=== PATIENT | female | born 1960 | race Caucasian/White ===

== ENCOUNTER 2016-11-19 06:58 | Emergency (ER) | payer OTHER ==
[2016-11-19 06:58] VITALS: BMI 27.4
[2016-11-19 07:06] VITALS: O2SAT 100
[2016-11-19] MEDS ORDERED: Lidocaine 5% Patch TD STA (07:15)
[2016-11-19] MEDS ORDERED: Lidocaine 5% Patch TD ONE (07:19)
--- NOTE | 2016-11-19 07:42 | C.PDOC ---
History Of Present Illness 56 year old female presents to the ED with complaints of lower back pain radiating down left leg. Pt has had back pain intermittently for 4 years with occasional flare-ups. No medications taken this morning. Denies fall or injury. Denies weakness, numbness, incontinence or any other complaints. Time Seen by Provider: 11/19/16 07:10 Chief Complaint (Nursing): Back Pain History Per: Patient History/Exam Limitations: no limitations Onset/Duration Of Symptoms: Days, Intermittent Episodes Current Symptoms Are (Timing): Still Present Quality Of Discomfort: "Pain" Severity: Moderate Previous Symptoms: Back Pain Associated Symptoms: None Recent travel outside of the [place]: No Past Medical History Reviewed: Historical Data, Nursing Documentation, Vital Signs Vital Signs: Last Vital Signs Temp 98.0 F 11/19/16 09:10 Pulse 78 11/19/16 09:10 Resp 16 11/19/16 09:10 BP 98/65 L 11/19/16 09:10 Pulse Ox 100 11/19/16 09:28 - Medical History PMH: Asthma, Hypercholesterolemia - [facility] Procedures APPLICATION OF SPLINT (09/14/13) Family History: States: Unknown Family Hx, Hypertension - Social History Hx Tobacco Use: No Hx Alcohol Use: No Hx Substance Use: No - Immunization History Hx Tetanus Toxoid Vaccination: No Hx Influenza Vaccination: No Hx Pneumococcal Vaccination: No Review Of Systems Except As Marked, All Systems Reviewed And Found Negative. Constitutional: Negative for: Fever Genitourinary: Negative for: Incontinence Musculoskeletal: Positive for: Back Pain. Negative for: Neck Pain Neurological: Negative for: Weakness, Numbness Physical Exam - Physical Exam Appears: Non-toxic, No Acute Distress Skin: Warm, Dry, No Rash Head: Atraumatic, Normacephalic Eye(s): bilateral: Normal Inspection, EOMI Nose: Normal Oral Mucosa: Moist Neck: Normal, Normal ROM, Supple Cardiovascular: Rhythm Regular, No Murmur Respiratory: Normal Breath Sounds, No Rales, No Rhonchi, No Wheezing Back: No Vertebral Tenderness, Paraspinal Tenderness (lumbar) Extremity: Normal ROM Extremity: Bilateral: Atraumatic, Normal Color And Temperature, Normal ROM Neurological/Psych: Oriented x3, Normal Speech, Normal Motor, Normal Sensation ED Course And Treatment O2 Sat by Pulse Oximetry: 100 (room air) Pulse Ox Interpretation: Normal Medical Decision Making Medical Decision Makin y.o female with low back pain, no recent trauma. Exam shows muscular tenderness. Patient treated with Toradol, Valium and Lidoderm patch. Patient reported improvement of symptoms. Upon reevaluation she was ambulatory with minimal discomfort. UA was negative. Advise patient to take analgesics and to follow up with primary physician. Disposition Counseled Patient/Family Regarding: Diagnosis, Need For Followup, Rx Given - Disposition Referrals: Evens Petit Jr., MD [Medical Doctor] - Disposition: HOME/ ROUTINE Disposition Time: 09:05 Condition: STABLE Additional Instructions: Ashly medicamentos fueron enviados a la farmacia Por favor, tome los medicamentos necesarios para el dolor Maurice un seguimiento con gaming mdico de cabecera para ángel evaluacin posterior Prescriptions: Cyclobenzaprine [Cyclobenzaprine HCl] 10 mg PO TID #21 tab Naproxen [Naprosyn] 1 tab PO BID PRN #25 tab PRN Reason: Pain Instructions: Sciatica (ED) Forms: Work Excuse Print Language: LAO - POA Present On Arrival: None - Clinical Impression Clinical Impression: Sciatica, Low back pain - 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 - Scribe Statement The provider has reviewed the documentation as recorded by the Rodolfo Vieyra All medical record entries made by the Rodolfo were at my direction and personally dictated by me. I have reviewed the chart and agree that the record accurately reflects my personal performance of the history, physical exam, medical decision making, and the department course for this patient. I have also personally directed, reviewed, and agree with the discharge instructions and disposition.
[2016-11-19 08:47] LABS: RBC URINE < 1 /hpf (0-3); URINE BILIRUBIN NEGATIVE (NEGATIVE); URINE BLOOD NEGATIVE (NEGATIVE); URINE COLOR Yellow (YELLOW); URINE GLUCOSE (UA) NORMAL (Normal); URINE KETONE NEGATIVE (NEGATIVE); URINE LEUKOCYTE ESTERASE 1+ Leu/uL (Negative); URINE PROTEIN NEGATIVE (NEGATIVE); WBC URINE 2 /hpf (0-5)
[2016-11-19 10:08] VITALS: BP 98/65; PULSE 78; RESP 16; TEMP 98
== END 2016-11-19 09:15 | disposition home or self-care (01) ==
LOC: C.ER 06:58
DX: M54.42 Lumbago with sciatica, left side (principal)
CPT/HCPCS: 81001; 96372; 99284; J1885

== ENCOUNTER 2016-12-16 14:59 | Emergency (ER) | payer OTHER ==
[2016-12-16 15:00] VITALS: BMI 27.4
--- NOTE | 2016-12-16 15:46 | C.PDOC ---
History Of Present Illness 56-year-old female, PMhx includes Asthma and Hypercholesterolemia, presents to the emergency department with complaints of chest wall pain that started four days ago. Pain is sharp, stabbing, left-sided and intermittent. Patient notes that pain is associated with mild nausea; it is worse w/ deep breaths and coughing. Notes a chronic cough due to asthma. No sputum, fevers or chills. Pain worsened today, resulting in her coming to the ED for evaluation. Time Seen by Provider: 12/16/16 15:04 Chief Complaint (Nursing): Chest Pain History Per: Patient History/Exam Limitations: no limitations Onset/Duration Of Symptoms: Days Current Symptoms Are (Timing): Still Present Severity: Moderate Past Medical History Reviewed: Historical Data, Nursing Documentation, Vital Signs Vital Signs: Last Vital Signs Temp 97.8 F 12/16/16 15:23 Pulse 73 12/16/16 15:23 Resp 18 12/16/16 15:49 BP 131/79 12/16/16 15:23 Pulse Ox 99 12/16/16 15:50 - Medical History PMH: Asthma, Hypercholesterolemia - [facility] Procedures APPLICATION OF SPLINT (09/14/13) Family History: States: Hypertension - Social History Hx Tobacco Use: No Hx Alcohol Use: No Hx Substance Use: No - Immunization History Hx Tetanus Toxoid Vaccination: No Hx Influenza Vaccination: No Hx Pneumococcal Vaccination: No Review Of Systems Except As Marked, All Systems Reviewed And Found Negative. Cardiovascular: Positive for: Chest Pain Respiratory: Positive for: Shortness of Breath, SOB with Excertion Gastrointestinal: Negative for: Nausea, Vomiting Musculoskeletal: Negative for: Back Pain Physical Exam - Physical Exam Appears: Non-toxic, No Acute Distress Skin: Warm, Dry, No Rash Head: Atraumatic, Normacephalic Eye(s): bilateral: Normal Inspection, PERRL, EOMI Nose: Normal Oral Mucosa: Moist Lips: Normal Appearing Neck: Normal ROM Chest: Tenderness (left chest wall) Cardiovascular: Rhythm Regular, No Murmur Respiratory: Normal Breath Sounds, No Accessory Muscle Use Back: Normal Inspection Extremity: Normal ROM ED Course And Treatment - Laboratory Results Result Diagrams: 12/16/16 16:32 12/16/16 16:32 Lab Interpretation: Normal ECG: Interpreted By Hi ECG Rhythm: Sinus Rhythm ECG Interpretation: Normal O2 Sat by Pulse Oximetry: 99 Pulse Ox Interpretation: Normal - Radiology CXR: Viewed By Me, Read By Radiologist CXR Interpretation: Yes: No Acute Disease, Other (elevated right hemidiaphragm) Reevaluation Time: 17:31 Reassessment Condition: Improved (Much more comfortable after Toradol IV) Disposition Counseled Patient/Family Regarding: Studies Performed, Diagnosis, Need For Followup - Disposition Referrals: Evens Petit Jr., MD [Family Provider] - Disposition: HOME/ ROUTINE Disposition Time: 17:34 Condition: IMPROVED Additional Instructions: Take Ibuprophen 3 tablets with food every 6 hours for pain if needed. Instructions: Costochondritis (ED) Print Language: MALAGASY - Clinical Impression Clinical Impression: Costochondritis - Scribe Statement The provider has reviewed the documentation as recorded by the Rodolfo Ross All medical record entries made by the Bhavanaibjose r were at my direction and personally dictated by me. I have reviewed the chart and agree that the record accurately reflects my personal performance of the history, physical exam, medical decision making, and the department course for this patient. I have also personally directed, reviewed, and agree with the discharge instructions and disposition.
[2016-12-16 15:53] VITALS: RESP 18
[2016-12-16 16:36] LABS: BASO # 0.1 K/uL (0.0-0.2); BASO % 0.9 % (0.0-2.0); EOS # 0.1 K/uL (0.0-0.7); EOS % 0.7 % (0.0-4.0); LYMPH # 2.5 K/uL (1.0-4.3); LYMPH % 30.2 % (20.0-40.0); MEAN CELL VOLUME 91.2 fL (81.0-99.0); MEAN CORPUSCULAR HEMOGLOBIN 29.9 pg (27.0-31.0); MEAN CORPUSCULAR HGB CONC 32.7 g/dL (33.0-37.0); MEAN PLATELET VOLUME 11.3 fL (7.2-11.7); MONO # 0.4 K/uL (0.0-0.8); MONO % 4.6 % (0.0-10.0); RED CELL DISTRIBUTION WIDTH 13.5 % (11.5-14.5); WHITE BLOOD COUNT 8.4 K/uL (4.8-10.8)
[2016-12-16 16:44] LABS: CHLORIDE 102 mmol/L (98-107); SODIUM 141 mmol/L (132-148)
[2016-12-16 16:45] LABS: POTASSIUM 3.5 mmol/L (3.6-5.2)
[2016-12-16 16:47] LABS: ALB/GLOB RATIO 1.5 (1.0-2.1); ALKALINE PHOSPHATASE 62 U/L (38-126); ALT/SGPT 24 U/L (9-52); AST/SGOT 20 U/L (14-36); BILIRUBIN,TOTAL 0.5 mg/dL (0.2-1.3); BLOOD UREA NITROGEN 13 mg/dL (7-17); CARBON DIOXIDE 28 mmol/L (22-30); GFR AFRICAN-AMERICAN > 60; GLUCOSE,RANDOM 94 mg/dL (65-105); TOTAL PROTEIN 7.2 g/dL (6.3-8.3)
--- NOTE | 2016-12-16 16:47 | RAD ---
PROCEDURE: CHEST RADIOGRAPH, 1 VIEW HISTORY: chest pain COMPARISON: Comparison chest 09/05/2016 FINDINGS: LUNGS: No focal consolidation. Elevation right hemidiaphragm could be due to eventration. PLEURA: No pneumothorax or pleural fluid seen. CARDIOVASCULAR: Normal. OSSEOUS STRUCTURES: Mild the multilevel degenerative spondylosis of the thoracic spine. Mild degenerative changes both acromioclavicular joints. VISUALIZED UPPER ABDOMEN: Normal. OTHER FINDINGS: None. IMPRESSION: No acute cardiopulmonary disease. Elevation right hemidiaphragm could be due to eventration.
[2016-12-16 16:48] LABS: CALCIUM 8.9 mg/dl (8.6-10.4)
[2016-12-16 17:42] VITALS: BP 131/74; PULSE 77; TEMP 98; O2SAT 96
--- NOTE | 2016-12-18 12:10 | CARD ---
APPROVED REPORT EKG Measurement Heart [id number] <Conclusion> Normal sinus rhythm Normal ECG
== END 2016-12-16 17:41 | disposition home or self-care (01) ==
LOC: C.ER 14:59
DX: M94.0 Chondrocostal junction syndrome [Tietze] (principal); E78.00 Pure hypercholesterolemia, unspecified
CPT/HCPCS: 71010; 80053; 84484; 85025; 93005; 96374; 99285; J1885

== ENCOUNTER 2017-03-10 09:17 | Emergency (ER) | payer OTHER ==
[2017-03-10 09:17] VITALS: BMI 27.4
[2017-03-10] MEDS ORDERED: Sodium Chloride 0.9% 1,000 ML IV ONE (09:39)
[2017-03-10 09:46] LABS: RBC URINE 1 /hpf (0-3); URINE BACTERIA RARE (<OCC); URINE BILIRUBIN NEGATIVE (NEGATIVE); URINE BLOOD NEGATIVE (NEGATIVE); URINE COLOR Yellow (YELLOW); URINE GLUCOSE (UA) NORMAL (Normal); URINE KETONE NEGATIVE (NEGATIVE); URINE LEUKOCYTE ESTERASE TRACE Leu/uL (Negative); URINE PROTEIN NEGATIVE (NEGATIVE); URINE UROBILINOGEN NORMAL mg/dL (0.2-1.0); WBC URINE 2 /hpf (0-5)
--- NOTE | 2017-03-10 10:02 | C.PDOC ---
History Of Present Illness 56 y/o female presents to ED c/o lower abdominal pain, described as cramping, for 4 days. Patient states she had a lot of different foods this past weekend, including pork and fried food, and symptoms have been present since then. Patient also reports 1 episode of bright red blood with bowel movement since this morning. She admits to prior similar symptoms with bowel movement, had a hemorrhoid. Patient denies current hemorrhoid. She also denies fever, chills, nausea, vomiting, dysuria/hematuria, fever, constipation. Time Seen by Provider: 03/10/17 09:21 Chief Complaint (Nursing): GI Problem History Per: Patient History/Exam Limitations: no limitations Onset/Duration Of Symptoms: Days Current Symptoms Are (Timing): Still Present Severity: Mild Past Medical History Reviewed: Historical Data, Nursing Documentation, Vital Signs Vital Signs: Last Vital Signs Temp 97.8 F 03/10/17 11:19 Pulse 76 03/10/17 11:19 Resp 18 03/10/17 11:19 BP 112/73 03/10/17 11:19 Pulse Ox 99 03/10/17 12:19 - Medical History PMH: Asthma, Depression, Hypercholesterolemia - [facility] Procedures APPLICATION OF SPLINT (09/14/13) Family History: States: Hypertension - Social History Hx Tobacco Use: No Hx Alcohol Use: Yes Hx Substance Use: No - Immunization History Hx Tetanus Toxoid Vaccination: No Hx Influenza Vaccination: No Hx Pneumococcal Vaccination: No Review Of Systems Except As Marked, All Systems Reviewed And Found Negative. Constitutional: Negative for: Fever, Chills Cardiovascular: Negative for: Chest Pain, Palpitations Respiratory: Negative for: Cough, Wheezing Gastrointestinal: Positive for: Abdominal Pain, Hematochezia. Negative for: Nausea, Vomiting, Diarrhea Genitourinary: Negative for: Dysuria, Hematuria Skin: Negative for: Rash Neurological: Negative for: Headache, Dizziness Physical Exam - Physical Exam Appears: Well, Non-toxic, No Acute Distress Skin: Normal Color, Warm, Dry, No Pale Oral Mucosa: Moist Neck: Supple Cardiovascular: Rhythm Regular Respiratory: Normal Breath Sounds, No Rales, No Rhonchi, No Wheezing Gastrointestinal/Abdominal: Bowel Sounds, Soft, Tenderness ( lower abdomen mildly TTP), No Guarding, No Rebound Rectal: Rectal Tone (Normal ), Heme Positive, Hemorrhoids (@ 6 o'clock, nontender, nonthrombosed, No gross blood. ), No Mass, No Tenderness, Other (No fissures ) Back: Normal Inspection, No CVA Tenderness Neurological/Psych: Oriented x3 ED Course And Treatment - Laboratory Results Result Diagrams: 03/10/17 09:46 03/10/17 09:46 O2 Sat by Pulse Oximetry: 99 (RA) Pulse Ox Interpretation: Normal Progress Note: Blood work ordered and reviewed. Patient given IV NS bolus. Reevaluation Time: 11:10 Reassessment Condition: Improved (On reassessment, patient is resting comfortably and states she feels better. On exam, abdomen is soft and nontender. Blood work and UA, Upreg (-). SFOB (+) and likely due to hemorrhoid. Patient given Rxs for colace, anusol and protonix, and was instructed to follow up with GI within 1 week. She understands she should return to Ed if symptoms worsen.) Disposition Counseled Patient/Family Regarding: Studies Performed, Diagnosis, Need For Followup, Rx Given - Disposition Referrals: Jaime Banks [Staff Provider] - [facility] [Outside] [facility] [Outside] Disposition: HOME/ ROUTINE Disposition Time: 11:10 Condition: STABLE Additional Instructions: USTED NECESITA SEGUIR CON GASTRONETEROLOGIST DENTRO DE 1 SEMANA USTED NECESITA CHERRIE COLONOSCOPIA! DEVUELVA A LA CHRISTA DE EMERGENCIA SI LOS SNTOMAS EMPEORARAN Prescriptions: Docusate [Colace] 100 mg PO DAILY #30 cap Hydrocortisone 2.5% (Rectal) [Anusol-HC] 30 applic AL BID #1 tube Pantoprazole [Protonix EC Tab] 20 mg PO DAILY #30 ect Instructions: Hemorrhoids (ED), Rectal Bleeding (ED) Forms: [employer] (Portuguese) Print Language: MOZAMBICAN - POA Present On Arrival: None - Clinical Impression Clinical Impression: Hemorrhoid, Rectal bleeding - Scribe Statement The provider has reviewed the documentation as recorded by the Rodolfo Ying Provider Attestation: All medical record entries made by the Scribjose r were at my direction and personally dictated by me. I have reviewed the chart and agree that the record accurately reflects my personal performance of the history, physical exam, medical decision making, and the department course for this patient. I have also personally directed, reviewed, and agree with the discharge instructions and disposition.
[2017-03-10 10:06] LABS: BASO % 0.4 % (0.0-2.0); EOS # 0.1 K/uL (0.0-0.7); EOS % 0.8 % (0.0-4.0); HEMATOCRIT 43.4 % (34.0-47.0); LYMPH # 1.4 K/uL (1.0-4.3); LYMPH % 14.6 % (20.0-40.0); MEAN CELL VOLUME 91.8 fL (81.0-99.0); MEAN CORPUSCULAR HEMOGLOBIN 30.1 pg (27.0-31.0); MEAN CORPUSCULAR HGB CONC 32.8 g/dL (33.0-37.0); MEAN PLATELET VOLUME 11.4 fL (7.2-11.7); MONO # 0.5 K/uL (0.0-0.8); MONO % 4.8 % (0.0-10.0); NRBC % 0.1 % (0.0-2.0); RED CELL DISTRIBUTION WIDTH 13.9 % (11.5-14.5); WHITE BLOOD COUNT 9.5 K/uL (4.8-10.8)
[2017-03-10 10:07] LABS: CHLORIDE 102 mmol/L (98-107); SODIUM 142 mmol/L (132-148)
[2017-03-10 10:08] LABS: POTASSIUM 3.7 mmol/L (3.6-5.2)
[2017-03-10 10:10] LABS: ALB/GLOB RATIO 1.4 (1.0-2.1); ALKALINE PHOSPHATASE 69 U/L (38-126); ALT/SGPT 35 U/L (9-52); AST/SGOT 22 U/L (14-36); BILIRUBIN,TOTAL 0.6 mg/dL (0.2-1.3); BLOOD UREA NITROGEN 14 mg/dL (7-17); CALCIUM 9.5 mg/dl (8.6-10.4); CARBON DIOXIDE 28 mmol/L (22-30); GFR AFRICAN-AMERICAN > 60; GLUCOSE,RANDOM 99 mg/dL (65-105); TOTAL PROTEIN 7.2 g/dL (6.3-8.3)
[2017-03-10 11:20] VITALS: BP 112/73; PULSE 76; RESP 18; TEMP 97.8
[2017-03-10 12:20] VITALS: O2SAT 99
== END 2017-03-10 11:20 | disposition home or self-care (01) ==
LOC: C.ER 09:17
DX: K64.9 Unspecified hemorrhoids (principal); K62.5 Hemorrhage of anus and rectum
CPT/HCPCS: 80053; 81001; 83690; 85025; 86850; 86900; 96360; 99285; G0328; J7040

== ENCOUNTER 2017-03-30 08:08 | Day surgery (SDC) | payer OTHER ==
[2017-03-30] MEDS ORDERED: Lidocaine Hydrochloride 5 ML INJ ONE (09:14)
[2017-03-30] MEDS ORDERED: Propofol 10 mg/ml Inj (20 ML) ONE ×2 (09:14→09:24)
--- NOTE | 2017-03-30 09:14 | CP.SDSHP ---
Same Day Surgery H & P - History Proposed Procedure: COLONSCOPY Pre-Op Diagnosis: SEE NOTES - Previous Medical/Surgical History Pulmonary: Asthma Endocrine/Metabolic: Other Misc: Other Pain: 4.Moderate Pain - Allergies Allergies: Allergies No Known Allergies Allergy (Verified 05/15/16 23:55) - Physical Exam General Appearance: N Vital Signs: Vital Signs 03/30/17 08:48 Temperature 97 F L Pulse Rate 77 Respiratory 20 Rate Blood Pressure 96/67 L O2 Sat by Pulse 97 Oximetry Mental Status: Alert & Oriented x3 Neuro: WNL Heart: WNL Lungs: Other GI: WNL - {Optional Preform as Required} Breast: WNL Abdomen: Other Rectal: Other Integument: WNL : WNL Ortho: WNL ENT: WNL - Impression Pt. Evaluated Today:Candidate for Anesthesia & Procedure: Yes - Date & Time Time: 09:13 Short Stay Discharge - Short Stay Discharge Admitting Diagnosis/Reason for Visit: HEMORRHAGE OF ANUS AND RECTUM Disposition: HOME/ ROUTINE
[2017-03-30] MEDS ORDERED: Belladonna-Phenobarbital PO ONE (09:50)
[2017-03-30 09:54] VITALS: TEMP 97.3; O2SAT 100
[2017-03-30 10:29] VITALS: BP 109/66; PULSE 61; RESP 16
== END 2017-03-30 11:00 | disposition home or self-care (01) ==
LOC: C.ENDO 08:08
PROVIDERS: ATTEND Specialist
DX: K52.9 Noninfective gastroenteritis and colitis, unspecified (principal); K64.8 Other hemorrhoids; K57.90 Diverticulosis of intestine, part unspecified, without perforation or abscess without bleeding
CPT/HCPCS: 45380; 88305; J2704

== ENCOUNTER 2017-05-26 05:13 | Emergency (ER) | payer OTHER ==
[2017-05-26 05:14] VITALS: BMI 27.4
[2017-05-26 05:28] VITALS: RESP 18
[2017-05-26] MEDS ORDERED: Albuterol-Ipratrop 3 mg / 0.5 (3 ml) UD INH STA ×2 (05:42→06:07)
[2017-05-26] MEDS ORDERED: Albuterol-Ipratrop 3 mg / 0.5 (3 ml) UD ONE ×2 (05:42→06:10)
--- NOTE | 2017-05-26 06:36 | C.PDOC ---
History Of Present Illness 56 year old female with Hx of asthma presents to the ED c/o cough associated with a runny nose and wheezing that occurred this morning when she woke up. She states taking her pump but with moderate relief. She denies fever, vomit, CP, SOB. Time Seen by Provider: 05/26/17 05:30 Chief Complaint (Nursing): Cough, Cold, Congestion History Per: Patient History/Exam Limitations: no limitations Onset/Duration Of Symptoms: Hrs Current Symptoms Are (Timing): Still Present Location Of Pain: None Sick Contacts (Context): None Associated Symptoms: Cough, Sinus Drainage. denies: Vomiting, Diarrhea Recent travel outside of the [place]: No Additional History Per: Patient Past Medical History Reviewed: Historical Data, Nursing Documentation, Vital Signs Vital Signs: Last Vital Signs Temp 97.9 F 05/26/17 05:26 Pulse 83 05/26/17 05:26 Resp 18 05/26/17 05:26 BP 122/84 05/26/17 05:26 Pulse Ox 97 05/26/17 06:40 - Medical History PMH: Asthma, Depression, Hypercholesterolemia Denies: Chronic Kidney Disease Surgical History: No Surg Hx - [facility] Procedures APPLICATION OF SPLINT (09/14/13) Family History: States: Unknown Family Hx, Hypertension - Social History Hx Tobacco Use: No Hx Alcohol Use: Yes Hx Substance Use: No - Immunization History Hx Tetanus Toxoid Vaccination: No Hx Influenza Vaccination: Yes Hx Pneumococcal Vaccination: No Review Of Systems Constitutional: Negative for: Fever, Chills ENT: Positive for: Nose Discharge. Negative for: Throat Pain Cardiovascular: Negative for: Chest Pain, Palpitations Respiratory: Positive for: Cough. Negative for: Shortness of Breath Gastrointestinal: Negative for: Nausea, Vomiting, Abdominal Pain Neurological: Negative for: Weakness, Numbness, Headache Physical Exam - Physical Exam Appears: Non-toxic, No Acute Distress Skin: Normal Color, Warm, Dry, No Rash Head: Atraumatic, Normacephalic Eye(s): bilateral: Normal Inspection Oral Mucosa: Moist Throat: Normal, No Erythema, No Exudate Neck: Normal ROM, Supple Chest: Symmetrical Cardiovascular: Rhythm Regular, No Murmur Respiratory: No Accessory Muscle Use, Wheezing (Mild expiratory) Gastrointestinal/Abdominal: Soft, No Tenderness Extremity: Normal ROM, No Pedal Edema, No Calf Tenderness, No Swelling Neurological/Psych: Oriented x3, Normal Speech, Normal Cognition Gait: Steady ED Course And Treatment O2 Sat by Pulse Oximetry: 97 (On RA) Pulse Ox Interpretation: Normal Medical Decision Making Medical Decision Making: Plan: * Albuterol 3 ml INH given * Prednisone 60 mg mg PO given * Peak flow test ordered On reevaluation patient is resting comfortably in no apparent distress. On re-exam, the patient rpeorts improvement of symptoms. Lungs are CTA, heart is RRR, ambulatory in the ED with steady. Abdomen is soft, non-tender and the patient is tolerating PO well. Follow up with the medical doctor within 1-2 days. Return if worsened. Disposition - Disposition Referrals: [facility] [Outside] Disposition: HOME/ ROUTINE Disposition Time: 06:46 Condition: GOOD Additional Instructions: Follow up with the medical doctor within 1-2 days. Return if worsened. Prescriptions: Albuterol 0.5% [Albuterol 0.5% Inhal Rosita (2.5 mg/0.5 ml) UD] 0.5 ml IH Q6 PRN # 20 neb PRN Reason: Wheezing Nebulizer Accessories [Reusable Nebulizer Kit] 1 each MC Q4 #1 kit predniSONE [Prednisone] 20 mg PO BID #10 tab Instructions: Upper Respiratory Infection (ED), Asthma (ED) Forms: [facility] (Sammarinese), Work Excuse Print Language: PERSIAN - Clinical Impression Clinical Impression: Exacerbation of asthma, Upper respiratory infection - PA / [employer] / Resident Statement MD/DO has reviewed & agrees with the documentation as recorded. - Scribe Statement The provider has reviewed the documentation as recorded by the Scribe Jacques James All medical record entries made by the Scribjose r were at my direction and personally dictated by me. I have reviewed the chart and agree that the record accurately reflects my personal performance of the history, physical exam, medical decision making, and the department course for this patient. I have also personally directed, reviewed, and agree with the discharge instructions and disposition.
[2017-05-26 06:59] VITALS: BP 125/82; PULSE 88; TEMP 99; O2SAT 100
== END 2017-05-26 06:59 | disposition home or self-care (01) ==
LOC: SUPCPDRO 05:13 → C.ER 05:13
DX: J45.901 Unspecified asthma with (acute) exacerbation (principal); J06.9 Acute upper respiratory infection, unspecified

== ENCOUNTER 2017-08-04 18:19 | Emergency (ER) | payer OTHER ==
[2017-08-04 18:19] VITALS: BMI 27.4
[2017-08-04] MEDS ORDERED: Albuterol-Ipratrop 3 mg / 0.5 (3 ml) UD ONE (18:26)
[2017-08-04 18:41] VITALS: BP 122/77; PULSE 101; TEMP 98.4; O2SAT 99
[2017-08-04 19:11] VITALS: RESP 22
--- NOTE | 2017-08-04 20:02 | C.PDOC ---
History Of Present Illness 56 year old female presents to the ED c/o cough, chest congestion. Patient reports she used her nebulizer treatment at home with some relief, but states she feel like "phlegm stuck in my throat". Patient denies any fever, chills, nausea, vomit, diarrhea, abdominal pain. Time Seen by Provider: 08/04/17 19:29 Chief Complaint (Nursing): Shortness Of Breath History Per: Patient History/Exam Limitations: no limitations Onset/Duration Of Symptoms: Days Current Symptoms Are (Timing): Still Present Quality: "Pain" Current Respiratory Medications: See Home Med List Associated Symptoms: Other (chest congestion) Recent travel outside of the [place]: No Additional History Per: Patient Past Medical History Reviewed: Historical Data, Nursing Documentation, Vital Signs Vital Signs: Last Vital Signs Temp 98.4 F 08/04/17 18:38 Pulse 101 H 08/04/17 18:38 Resp 22 08/04/17 19:09 BP 122/77 08/04/17 18:38 Pulse Ox 99 08/04/17 20:02 - Medical History PMH: Arthritis, Asthma, Depression, Hypercholesterolemia Denies: Chronic Kidney Disease Surgical History: No Surg Hx - [facility] Procedures APPLICATION OF SPLINT (09/14/13) Family History: States: Unknown Family Hx, Hypertension - Social History Hx Tobacco Use: No Hx Alcohol Use: No Hx Substance Use: No - Immunization History Hx Tetanus Toxoid Vaccination: No Hx Influenza Vaccination: Yes Hx Pneumococcal Vaccination: No Review Of Systems Constitutional: Negative for: Fever, Chills Cardiovascular: Positive for: Chest Pain Respiratory: Positive for: Cough. Negative for: Shortness of Breath Gastrointestinal: Negative for: Nausea, Vomiting, Abdominal Pain Genitourinary: Negative for: Dysuria, Frequency, Hematuria Musculoskeletal: Negative for: Back Pain Skin: Negative for: Rash Neurological: Negative for: Weakness, Numbness Physical Exam - Physical Exam Appears: Non-toxic, No Acute Distress Skin: Normal Color, Warm, Dry Head: Atraumatic, Normacephalic Eye(s): bilateral: Normal Inspection Ear(s): Bilateral: Normal Nose: No Discharge, No Deformity Oral Mucosa: Moist Throat: Normal, No Erythema, No Exudate Neck: Normal ROM, Supple Lymphatic: Deferred Chest: Symmetrical Cardiovascular: Rhythm Regular, No Murmur Respiratory: Normal Breath Sounds, No Rales, No Rhonchi, No Wheezing Gastrointestinal/Abdominal: Soft, No Tenderness, No Guarding, No Rebound Extremity: Normal ROM, No Pedal Edema, No Calf Tenderness, No Deformity, No Swelling Neurological/Psych: Oriented x3, Normal Speech, Normal Cognition Gait: Steady ED Course And Treatment O2 Sat by Pulse Oximetry: 99 (On RA) Pulse Ox Interpretation: Normal Progress Note: Plan: -EKG. -Tessalon perles 100 mg PO. -Tylenol 975 mg PO. - Prednisone 60 mg PO. Patient received a nebulizer tretament prior to my examnination. Patient is resting comfortably, and is in no acute distress. Patient was instructed to follow up with PMD in 1-2 days for further evaluation. Disposition Counseled Patient/Family Regarding: Diagnosis, Need For Followup, Rx Given - Disposition Referrals: Evens Mccarthy [Staff Provider] - Disposition: HOME/ ROUTINE Disposition Time: 20:01 Condition: STABLE Additional Instructions: Please follow up with PMD Take medications as directed Return to ER if worse Prescriptions: Benzonatate [Tessalon Perles] 100 mg PO TID #20 sgl Cetirizine HCl [Zyrtec] 10 mg PO DAILY #20 capsule predniSONE [Prednisone] 40 mg PO DAILY #8 tab Instructions: Upper Respiratory Infection (ED) Forms: [employer] (Telugu) Print Language: ROMANSH - Clinical Impression Clinical Impression: Upper respiratory infection, Exacerbation of asthma - 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 - Scribe Statement The provider has reviewed the documentation as recorded by the Scribe Jacques James All medical record entries made by the Bhavanaibjose r were at my direction and personally dictated by me. I have reviewed the chart and agree that the record accurately reflects my personal performance of the history, physical exam, medical decision making, and the department course for this patient. I have also personally directed, reviewed, and agree with the discharge instructions and disposition.
--- NOTE | 2017-08-05 12:38 | CARD ---
APPROVED REPORT EKG Measurement Heart [id number] <Conclusion> Normal sinus rhythm Normal ECG
== END 2017-08-04 20:29 | disposition home or self-care (01) ==
LOC: C.ER 18:19
DX: J06.9 Acute upper respiratory infection, unspecified (principal); J45.901 Unspecified asthma with (acute) exacerbation

== ENCOUNTER 2018-03-15 15:03 | Emergency (ER) | payer SELFPAY ==
[2018-03-15 15:04] VITALS: BMI 27.4
[2018-03-15 15:22] VITALS: BP 132/81; PULSE 69; RESP 20; TEMP 98.3; O2SAT 98
--- NOTE | 2018-03-15 15:56 | C.PDOC ---
History Of Present Illness 57 y/o female presents to the ER for evaluation of left ankle pain and swelling which gradually developed after she sustained a twisting injury yesterday. Pt states that the pain is localized to the left lateral ankle. Pt reports that the pain is worse with ambulation. Denies having obvious deformity, weakness, and sensory or vascular deficits, denies nay iethr active complaints. Ambulate to ED for evaluation, not in any apparent distress. Time Seen by Provider: 03/15/18 15:33 Chief Complaint (Nursing): Lower Extremity Problem/Injury History Per: Patient History/Exam Limitations: no limitations Onset/Duration Of Symptoms: Days Current Symptoms Are (Timing): Still Present Severity: Moderate - Ankle/Foot Description Of Injury: Twisted (left ankle) Past Medical History Reviewed: Historical Data, Nursing Documentation, Vital Signs Vital Signs: Last Vital Signs Temp 98.3 F 03/15/18 15:19 Pulse 69 03/15/18 15:19 Resp 20 03/15/18 15:19 BP 132/81 03/15/18 15:19 Pulse Ox 98 03/15/18 16:06 - Medical History PMH: Arthritis, Asthma, Depression, Hypercholesterolemia Denies: Chronic Kidney Disease - [facility] Procedures APPLICATION OF SPLINT (09/14/13) Family History: States: Hypertension - Social History Hx Tobacco Use: No Hx Alcohol Use: No Hx Substance Use: No - Immunization History Hx Tetanus Toxoid Vaccination: Yes Hx Influenza Vaccination: Yes Hx Pneumococcal Vaccination: Yes Review Of Systems Except As Marked, All Systems Reviewed And Found Negative. Musculoskeletal: Positive for: Other (left ankle pain) Neurological: Negative for: Weakness, Numbness Physical Exam - Physical Exam Appears: Well, Non-toxic, No Acute Distress Skin: Normal Color, Warm, Dry Head: Atraumatic, Normacephalic Extremity: Normal ROM (mild discomfort to left ankle flexion), Tenderness ( tenderness to left lateral malleolus), Capillary Refill (less than 2sec to left foot), No Deformity, Swelling (mild ove rlateral malleolus of Left ankle) Neurological/Psych: Oriented x3, Normal Speech, Normal Motor, Normal Sensation, Normal Reflexes ED Course And Treatment O2 Sat by Pulse Oximetry: 98 (RA) Pulse Ox Interpretation: Normal - Other Rad Left tib/fib X-Ray: Interpreted by Me, Viewed By Me Interpretation: (-) acute fx or dislocation Left ankle and foot X-Ray: Interpreted by Me, Viewed By Me Interpretation: (-) acute fx or dislocation Progress Note: On re-eval, pt is afebrile, hemodynamicaly stable. non-toxic.,. Ambulatoyr in Ed with stable gait. Left ankle: mod edema over laetral malleolus with tenderness. no deformity. FAROM, no neurovascular deficits. Imaging review (-) acute fx. Austen wrap/ air cast applied to left ankle. pt advised and ref. to f/u with Podiatry in 2-3 days for re-eavl. return to Ed if any worsening or new changes. Disposition Counseled Patient/Family Regarding: Studies Performed, Diagnosis, Need For Followup, Rx Given - Disposition Referrals: Nery Tolbert [Medical Doctor] - [facility] at [facility] [Outside] Disposition: HOME/ ROUTINE Disposition Time: 16:00 Condition: STABLE Additional Instructions: Splint for 1 week Avoid prolong walking Take pain medication as need Follow up with Podiatry Clinic on from Noon-3PM for further evaluation and treatment return to ED if any worsening or new changes. 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 - Scribe Statement The provider has reviewed the documentation as recorded by the Rodolfo Barraza Provider Attestation All medical record entries made by the Rodolfo were at my direction and personally dictated by me. I have reviewed the chart and agree that the record accurately reflects my personal performance of the history, physical exam, medical decision making, and the department course for this patient. I have also personally directed, reviewed, and agree with the discharge instructions and disposition.
--- NOTE | 2018-03-15 16:48 | RAD ---
Date of service: 03/15/2018 PROCEDURE: Left Ankle Radiographs. HISTORY: injury COMPARISON: None FINDINGS: BONES: . No acute fracture. Prominent posterior calcaneal spur - blending Achilles tendon insertional enthesophyte. JOINTS: Normal. No osteoarthritis. Ankle mortise maintained. Talar dome intact SOFT TISSUES: Normal. OTHER FINDINGS: 1 mm well corticated ossification inferior to medial malleolus- old osseous avulsion a consideration. IMPRESSION: No acute fracture. 1 mm well corticated ossification inferior to medial malleolus- old osseous avulsion a consideration. Prominent posterior calcaneal spur - blending Achilles tendon insertional enthesophyte.
--- NOTE | 2018-03-15 16:50 | RAD ---
Date of service: 03/15/2018 PROCEDURE: Radiographs of the left tibia and fibula. HISTORY: injurye COMPARISON: None available. TECHNIQUE: Frontal and lateral views obtained. FINDINGS: BONES: No acute fracture or destructive lesion. Well corticated ossification borders the proximal fibula- an old osseous avulsion here is a consideration. JOINT SPACES: Unremarkable. OTHER FINDINGS: None. IMPRESSION: No acute fracture or dislocation. Well corticated ossification borders the proximal fibula- an old osseous avulsion here is a consideration.
--- NOTE | 2018-03-15 16:52 | RAD ---
Date of service: 03/15/2018 PROCEDURE: Left Foot Radiographs. HISTORY: injury COMPARISON: 09/14/2013 FINDINGS: BONES: No acute fracture. Prominent posterior calcaneal spur - blending Achilles tendon insertional enthesophyte -similar JOINTS: Mild 1st metatarsal-phalangeal joint arthrosis-similar. Here 1st metatarsal head tiny subchondral cystic changes are noted similar in appearance SOFT TISSUES: Normal. OTHER FINDINGS: None. IMPRESSION: No interval pathology noted. Specifically no acute fracture Degenerative changes as above
== END 2018-03-15 16:36 | disposition home or self-care (01) ==
LOC: C.ER 15:03
DX: S93.402A Sprain of unspecified ligament of left ankle, initial encounter (principal); X50.1XXA Overexertion from prolonged static or awkward postures, initial encounter; E78.00 Pure hypercholesterolemia, unspecified

== ENCOUNTER 2018-07-25 14:53 | Emergency (ER) | payer MEDICAID ==
[2018-07-25 15:50] VITALS: BMI 37.5
[2018-07-25 15:52] VITALS: RESP 18; O2SAT 97
[2018-07-25] MEDS ORDERED: Lidocaine 5% Patch TD STA (16:22)
[2018-07-25] MEDS ORDERED: Lidocaine 5% Patch TD ONE (16:34)
--- NOTE | 2018-07-25 17:22 | RAD ---
Date of service: 07/25/2018 knee PROCEDURE: Radiographs of the Lumbar Spine. HISTORY: pain COMPARISON: Lumbar spine radiographs performed 12/11/14 FINDINGS: BONES: Alignment appears satisfactory. No listhesis. Osseous demineralization limits evaluation for acute fracture lines. Mild degenerative changes including small anterior osteophyte formation. No acute displaced fracture identified. DISC SPACES: Unremarkable. OTHER FINDINGS: None. IMPRESSION: No acute displaced fracture or dislocation identified. Mild degenerative changes. Osseous demineralization.
[2018-07-25] MEDS ORDERED: Morphine 4 MG/ML VIAL ONE (17:59)
[2018-07-25 18:37] VITALS: BP 134/87; PULSE 72; TEMP 98.4
--- NOTE | 2018-07-25 19:23 | C.PDOC ---
History Of Present Illness 57 year old female presents to the ED for evaluation of lower back pain which began earlier today. 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 Patient then heard a "crack" to her lower back. Patient reports pain is worse with walking. She denies urinary/bowel incontinence or extremity numbness/weakness. Time Seen by Provider: 07/25/18 15:53 Chief Complaint (Nursing): Back Pain History Per: Patient History/Exam Limitations: no limitations Onset/Duration Of Symptoms: Hrs Current Symptoms Are (Timing): Better Quality Of Discomfort: "Pain" Previous Symptoms: Back Pain Associated Symptoms: denies: Incontinence, New Weakness, New Numbness Exacerbating Factor(s): Movement Additional History Per: Patient Past Medical History Reviewed: Historical Data, Nursing Documentation, Vital Signs Vital Signs: Last Vital Signs Temp 98.4 F 07/25/18 18:37 Pulse 72 07/25/18 18:37 Resp 18 07/25/18 18:37 BP 134/87 07/25/18 18:37 Pulse Ox 97 07/25/18 18:37 - Medical History PMH: Arthritis, Asthma, Depression, Hypercholesterolemia Denies: Chronic Kidney Disease Surgical History: No Surg Hx - [facility] Procedures APPLICATION OF SPLINT (09/14/13) Family History: States: Hypertension - Social History Hx Tobacco Use: No Hx Alcohol Use: No Hx Substance Use: No - Immunization History Hx Tetanus Toxoid Vaccination: Yes Hx Influenza Vaccination: Yes Hx Pneumococcal Vaccination: Yes Review Of Systems Musculoskeletal: Positive for: Back Pain (lower) Neurological: Negative for: Weakness, Numbness Physical Exam - Physical Exam Appears: Non-toxic, Other (in painful distress ) Skin: Normal Color, Warm, Dry Head: Atraumatic, Normacephalic Eye(s): bilateral: Normal Inspection Oral Mucosa: Moist Neck: Supple Chest: Symmetrical, No Deformity, No Tenderness Cardiovascular: Rhythm Regular, No Murmur Respiratory: Normal Breath Sounds, No Rales, No Rhonchi, No Wheezing Back: Decreased ROM (pain worse with walking ), Other (over mid-lower back region ) Extremity: Normal ROM, Capillary Refill (less than 2 seconds ) Neurological/Psych: Oriented x3, Normal Speech, Normal Cognition ED Course And Treatment O2 Sat by Pulse Oximetry: 97 (on RA ) Pulse Ox Interpretation: Normal Progress Note: Toradol IM, Valium PO and Lidoderm patch given. Patient continues to complain of pain. She is crying due to distress and unable to walk. Morphine IM given. On reassessment, patient is resting comfortably, showing no signs of distress and reports an improvement in her pain. Patient is ambulatory in the ED without distress and is stable for discharge. Patient is advised to follow up with her PMD within 1-2 days for further evaluation. Reassessment Condition: Improved Disposition - Disposition Disposition: HOME/ ROUTINE Disposition Time: 19:21 Condition: STABLE Additional Instructions: Follow up with your PMD within 1-2 days. Return to ED if feel worse. 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 - Scribe Statement The provider has reviewed the documentation as recorded by the Scribe (Chel Ken) All medical record entries made by the Scribe were at my direction and personally dictated by me. I have reviewed the chart and agree that the record accurately reflects my personal performance of the history, physical exam, medical decision making, and the department course for this patient. I have also personally directed, reviewed, and agree with the discharge instructions and disposition.
== END 2018-07-25 19:30 | disposition home or self-care (01) ==
LOC: C.ER 14:53
DX: S39.012A Strain of muscle, fascia and tendon of lower back, initial encounter (principal); X50.0XXA Overexertion from strenuous movement or load, initial encounter; Y93.9 Activity, unspecified; Y92.89 Other specified places as the place of occurrence of the external cause; Y99.0 Civilian activity done for income or pay
CPT/HCPCS: 72100; 96372; 99284; J1885; J2270

== ENCOUNTER 2018-07-27 10:40 | Emergency (ER) | payer OTHER, MEDICAID ==
[2018-07-27 10:40] VITALS: BMI 37.5
[2018-07-27] MEDS ORDERED: Sodium Chloride 0.9% 1,000 ML IV ONE (11:25)
[2018-07-27] MEDS ORDERED: Sodium Chloride 0.9% 1,000 ML ONE (11:54)
--- NOTE | 2018-07-27 11:56 | C.PDOC ---
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 Patient reports that she was already evaluated at [facility] on 07-25-18 where X-ray of the L-spine was done. Patient states that she was given pain medication but reports no improvement. Patient states that she is having severe pain and reports difficulty ambulating. Patient states that the pain radiates to her front RUQ area. She denies fever, nausea, vomiting, diarrhea, dysuria, hematuria, sensory changes in her legs, and bowel/bladder retention. Time Seen by Provider: 07/27/18 11:02 Chief Complaint (Nursing): Back Pain History Per: Patient History/Exam Limitations: no limitations Onset/Duration Of Symptoms: Days (2) Current Symptoms Are (Timing): Still Present Quality Of Discomfort: "Pain" Severity: Severe Previous Symptoms: Back Pain Associated Symptoms: None Exacerbating Factor(s): Other (walking) Past Medical History Reviewed: Historical Data, Nursing Documentation, Vital Signs Vital Signs: Last Vital Signs Temp 98.2 F 07/27/18 11:02 Pulse 83 07/27/18 11:02 Resp 18 07/27/18 11:02 BP 137/86 07/27/18 11:02 Pulse Ox 96 07/27/18 11:02 - Medical History PMH: Arthritis, Asthma, Depression, Hypercholesterolemia Denies: Chronic Kidney Disease Surgical History: No Surg Hx - [facility] Procedures APPLICATION OF SPLINT (09/14/13) Family History: States: Hypertension - Social History Hx Tobacco Use: No Hx Alcohol Use: No Hx Substance Use: No - Immunization History Hx Tetanus Toxoid Vaccination: No Hx Influenza Vaccination: Yes Hx Pneumococcal Vaccination: No Review Of Systems Constitutional: Negative for: Fever Gastrointestinal: Negative for: Nausea, Vomiting, Diarrhea Genitourinary: Negative for: Dysuria, Incontinence, Hematuria Musculoskeletal: Positive for: Back Pain Physical Exam - Physical Exam Appears: Non-toxic, In Acute Distress (moderate distress) Skin: Warm, Dry, No Rash Head: Atraumatic, Normacephalic Eye(s): bilateral: Normal Inspection Neck: Normal, Supple Chest: Symmetrical, No Tenderness Cardiovascular: Rhythm Regular, No Murmur Respiratory: Normal Breath Sounds, No Rales, No Rhonchi, No Wheezing Gastrointestinal/Abdominal: Soft, No Tenderness Back: Vertebral Tenderness, Paraspinal Tenderness (right-sided paraspinal tenderness) Extremity: Normal ROM Pulses: Left Dorsalis Pedis: Normal, Right Dorsalis Pedis: Normal Neurological/Psych: Oriented x3, Normal Speech, Normal Cognition, Normal Motor, Normal Sensation ED Course And Treatment - Laboratory Results Result Diagrams: 07/27/18 12:04 07/27/18 12:04 O2 Sat by Pulse Oximetry: 96 (RA) Pulse Ox Interpretation: Normal - CT Scan/US CT Abdomen and Pelvis Other Rad Studies (CT/US): Read By Radiologist, Radiology Report Reviewed CT/US Interpretation: IMPRESSION: 1. No radiodense urolithiasis, perinephric fluid collection or obstructive uropathy is appreciate bilaterally. The bilateral ureters appear normal caliber overall. Advanced degenerative disc disease is noted at L5-S1 instead. 2. Variable colonic diverticulosis primarily at the descending and sigmoid colon segments and minimally at the cecum without acute changes. No bowel obstruction, measure edema or free intra peritoneal gas collection identified. Mildly prominent retained fecal material ascending through transverse colon segments. 3. Small cyst near dome of liver with liver otherwise unremarkable in this unenhanced exam. Progress Note: Plan: CT Abdomen and Pelvis. Chemistry. CBC. NaCl IV Fluids. Toradol 30mg IVP. Valium 5mg PO. Urinalysis Disposition Counseled Patient/Family Regarding: Studies Performed, Diagnosis, Need For Followup, Rx Given - Disposition Referrals: [facility] at [facility] [Outside] Disposition: HOME/ ROUTINE Disposition Time: 16:00 Condition: STABLE Additional Instructions: FOLLOW UP WITH YOUR DOCTOR/CLINIC IN 1-2 DAYS USE MEDICATIONS DIRECTED RETURN TO ER IF SYMPTOMS BECOME WORSE SEGUIR CON SCHULZ MDICO / CLNICA EN 1-2 MEN[place] UTILICE MEDICAMENTOS LINDSEY SE DIRIGE REGRESAR A ER SI LOS SNTOMAS SE HACEN PEOR Prescriptions: predniSONE [predniSONE Tab] 40 mg PO DAILY #8 tab Instructions: Low Back Pain (DC) Forms: [facility] [employer] (Spanish) Print Language: SENEGALESE - Clinical Impression Clinical Impression: Lumbar sprain, Low back pain - Scribe Statement The provider has reviewed the documentation as recorded by the Scribe (Santos Linder) Provider Attestation: All medical record entries made by the Scribe were at my direction and personally dictated by me. I have reviewed the chart and agree that the record accurately reflects my personal performance of the history, physical exam, medical decision making, and the department course for this patient. I have also personally directed, reviewed, and agree with the discharge instructions and disposition.
[2018-07-27 12:13] LABS: BASO % 0.7 % (0.0-2.0); EOS # 0.1 K/uL (0.0-0.7); HEMOGLOBIN 15.4 g/dL (11.0-16.0); LYMPH # 1.4 K/uL (1.0-4.3); LYMPH % 20.1 % (20.0-40.0); MEAN CORPUSCULAR HGB CONC 32.9 g/dL (33.0-37.0); MEAN PLATELET VOLUME 10.5 fL (7.2-11.7); MONO # 0.4 K/uL (0.0-0.8); MONO % 6.1 % (0.0-10.0); NEUT # 5.2 K/uL (1.8-7.0); NEUT % 72.1 % (50.0-75.0); RBC 4.95 Mil/uL (3.80-5.20); RED CELL DISTRIBUTION WIDTH 14.5 % (11.5-14.5); WHITE BLOOD COUNT 7.2 K/uL (4.8-10.8)
[2018-07-27 12:15] LABS: MEAN CELL VOLUME 94.3 fL (81.0-99.0)
[2018-07-27] MEDS ORDERED: Iohexol 240 (50 ml) PO ONE (12:15)
[2018-07-27 12:26] LABS: ALB/GLOB RATIO 1.7 (1.0-2.1); ALBUMIN 4.4 g/dL (3.5-5.0); ALT/SGPT 47 U/L (9-52); AST/SGOT 31 U/L (14-36); BLOOD UREA NITROGEN 14 mg/dL (7-17); CALCIUM 9.1 mg/dl (8.6-10.4); GFR NON-AFRICAN AMERICAN > 60; LIPASE 58 U/L (23-300)
[2018-07-27 14:28] LABS: SQUAMOUS EPITHIAL 3 /hpf (0-5); URINE BACTERIA RARE (<OCC); URINE BILIRUBIN NEGATIVE (NEGATIVE); URINE BLOOD NEGATIVE (NEGATIVE); URINE CLARITY Clear (Clear); URINE COLOR Straw (YELLOW); URINE GLUCOSE (UA) NORMAL (Normal); URINE LEUKOCYTE ESTERASE 2+ Leu/uL (Negative); URINE PROTEIN NEGATIVE (NEGATIVE); URINE UROBILINOGEN NORMAL mg/dL (0.2-1.0)
--- NOTE | 2018-07-27 15:12 | CT ---
Date of service: 07/27/2018 PROCEDURE: CT Abdomen and Pelvis with contrast HISTORY: right lumbar/flank pain COMPARISON: None. TECHNIQUE: Helical CT of the abdomen and pelvis was performed following oral contrast administration only. Intravenous contrast was not administered as per referring physician request. Coronal and sagittal reformats were generated. Radiation dose: Total exam DLP = 1190.48 mGy-cm. This CT exam was performed using one or more of the following dose reduction techniques: Automated exposure control, adjustment of the mA and/or kV according to patient size, and/or use of iterative reconstruction technique. FINDINGS: LOWER THORAX: Limited patchy atelectasis favored over infiltrate at the medial right lower lobe base; this may even be reaction from degenerative disc disease. Cardiomegaly. No pleural or pericardial effusion identified. Small hiatal hernia present. LIVER: 1.4 cm cyst is seen near the dome anteriorly with remainder of the liver appearing homogeneous in overall density, borderline enlarged. GALLBLADDER AND BILE DUCTS: Unremarkable. PANCREAS: Unremarkable. No gross lesion or ductal dilatation. SPLEEN: Unremarkable. ADRENALS: Unremarkable. No mass. KIDNEYS AND URETERS: No radiodense urolithiasis, perinephric fluid collection or obstructive uropathy is appreciate bilaterally. The bilateral ureters appear normal caliber overall. VASCULATURE: Unremarkable. No aortic aneurysm. No aortic atherosclerotic calcification or mural plaque present. BOWEL: The bowel is not appear obstructed. Oral contrast within small bowel loops fails demonstrate suspicious findings with only limited proximal small bowel of opacified. The right hemicolon is opacified with oral contrast material. Mildly prominent retained fecal material seen the proximal and mid large-bowel segments and is limited distally. No gross mural thickening is seen associated with the colon and there is no perienteric or pericolic reaction throughout. Scattered diverticular seen occasionally at the cecum and are somewhat more frequent at the left hemicolon. APPENDIX: Normal appendix. PERITONEUM: Unremarkable. No free fluid. No free air. LYMPH NODES: Unremarkable. No enlarged lymph nodes. BLADDER: Mildly distended but appears smooth and thin walled. No radiodense urolithiasis associated. REPRODUCTIVE: Unremarkable. BONES: No fracture identified or spondylolisthesis. Advanced degenerative disc disease L5-S1. OTHER FINDINGS: None. IMPRESSION: 1. No radiodense urolithiasis, perinephric fluid collection or obstructive uropathy is appreciate bilaterally. The bilateral ureters appear normal caliber overall. Advanced degenerative disc disease is noted at L5-S1 instead. 2. Variable colonic diverticulosis primarily at the descending and sigmoid colon segments and minimally at the cecum without acute changes. No bowel obstruction, measure edema or free intra peritoneal gas collection identified. Mildly prominent retained fecal material ascending through transverse colon segments. 3. Small cyst near dome of liver with liver otherwise unremarkable in this unenhanced exam.
[2018-07-27] MEDS ORDERED: Morphine 4 MG/ML VIAL ONE (15:44)
[2018-07-27 15:49] VITALS: RESP 20; TEMP 98.3
[2018-07-27 17:16] VITALS: BP 150/83; PULSE 63; O2SAT 100
== END 2018-07-27 17:10 | disposition home or self-care (01) ==
LOC: C.ER 10:40
DX: S33.5XXD Sprain of ligaments of lumbar spine, subsequent encounter (principal); X50.0XXD Overexertion from strenuous movement or load, subsequent encounter; M54.5 Low back pain
CPT/HCPCS: 74176; 80053; 81001; 83690; 85025; 96361; 96374; 96375; 99285; J1885; J2270; J2930; J7030; Q9966

== ENCOUNTER 2018-11-04 15:05 | Emergency (ER) | payer MEDICAID, OTHER ==
[2018-11-04 15:05] VITALS: BMI 37.5
[2018-11-04 15:14] VITALS: RESP 18; O2SAT 99
[2018-11-04 15:30] LABS: BASO # 0.1 K/uL (0.0-0.2); EOS # 0.1 K/uL (0.0-0.7); EOS % 0.9 % (0.0-4.0); HEMOGLOBIN 14.2 g/dL (11.0-16.0); LYMPH # 2.1 K/uL (1.0-4.3); LYMPH % 28.3 % (20.0-40.0); MEAN CELL VOLUME 92.7 fL (81.0-99.0); MEAN CORPUSCULAR HEMOGLOBIN 30.5 pg (27.0-31.0); MEAN CORPUSCULAR HGB CONC 32.9 g/dL (33.0-37.0); MEAN PLATELET VOLUME 10.7 fL (7.2-11.7); MONO # 0.4 K/uL (0.0-0.8); MONO % 5.8 % (0.0-10.0); NEUT # 4.8 K/uL (1.8-7.0); NRBC % 0.1 % (0.0-2.0); RBC 4.66 Mil/uL (3.80-5.20); RED CELL DISTRIBUTION WIDTH 13.7 % (11.5-14.5); WHITE BLOOD COUNT 7.5 K/uL (4.8-10.8)
[2018-11-04 15:41] LABS: ALB/GLOB RATIO 1.7 (1.0-2.1); ALBUMIN 4.2 g/dL (3.5-5.0); ALT/SGPT 38 U/L (9-52); AST/SGOT 29 U/L (14-36); BLOOD UREA NITROGEN 21 mg/dL (7-17); CALCIUM 9.5 mg/dl (8.6-10.4); GFR NON-AFRICAN AMERICAN 51
[2018-11-04] MEDS ORDERED: Sodium Chloride 0.9% 1,000 ML IV ONE (16:18)
--- NOTE | 2018-11-04 16:40 | C.PDOC ---
History Of Present Illness 58 year old female, with a PMHx of asthma, presents to the ED c/o dizziness that began while the she was at work today; episode lasted approx 20 min. 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 Patient denies CP, SOB, palpitations, visual changes, facial changes, slurred speech, extremity weakness, sensory changes, gait changes. Patient currently feels better, symptoms have resolved. Time Seen by Provider: 11/04/18 15:09 Chief Complaint (Nursing): Syncope History Per: Patient History/Exam Limitations: no limitations Onset/Duration Of Symptoms: Hrs Current Symptoms Are (Timing): Gone Fall Associated With With Symptoms: No Recent travel outside of the [place]: No Additional History Per: Patient Past Medical History Reviewed: Historical Data, Nursing Documentation, Vital Signs Vital Signs: Last Vital Signs Temp 98 F 11/04/18 15:12 Pulse 90 11/04/18 15:12 Resp 18 11/04/18 15:12 BP 132/82 11/04/18 15:12 Pulse Ox 99 11/04/18 15:12 - Medical History PMH: Arthritis, Asthma, Depression, Hypercholesterolemia, Hyperlipidemia Surgical History: No Surg Hx - [facility] Procedures APPLICATION OF SPLINT (09/14/13) Family History: States: Hypertension - Social History Hx Tobacco Use: No Hx Alcohol Use: No Hx Substance Use: No - Immunization History Hx Tetanus Toxoid Vaccination: Yes Hx Influenza Vaccination: Yes Hx Pneumococcal Vaccination: Yes Review Of Systems Eyes: Negative for: Vision Change ENT: Negative for: Other (facial changes) Cardiovascular: Negative for: Chest Pain, Palpitations Respiratory: Negative for: Shortness of Breath Neurological: Positive for: Dizziness (lightheadedness). Negative for: Weakness (extremities), Numbness, Incoordination, Change in Speech, Confusion, Seizures, Altered Mental Status, Headache Physical Exam - Physical Exam Appears: Well, Non-toxic, No Acute Distress Skin: Normal Color, Warm, Dry Head: Atraumatic, Normacephalic Eye(s): bilateral: Normal Inspection, PERRL, EOMI Oral Mucosa: Moist Neck: Normal ROM, No Midline Cervical Tenderness, No Paracervical Tenderness, No Step Off Deformity, Supple Cardiovascular: Rhythm Regular Respiratory: Normal Breath Sounds, No Rales, No Rhonchi, No Wheezing Gastrointestinal/Abdominal: Normal Exam, Bowel Sounds, Soft, No Tenderness Extremity: Normal ROM, No Deformity, No Swelling Extremity: Bilateral: Atraumatic, Normal Color And Temperature, Normal ROM Neurological/Psych: Oriented x3, Normal Speech, Normal Cognition, Normal Cranial Nerves, No Cerebellar Signs, Normal Motor, Normal Sensation, No Expressive Aphasia, No Receptive Aphasia, No Dysarthria, No Romberg Gait: Steady ED Course And Treatment - Laboratory Results Result Diagrams: 11/04/18 15:11/04/18 15: Lab Results: Troponin I < 0.0120 ng/mL (0.00-0.120) 11/04/18 15: Total Bilirubin 0.4 mg/dL (0.2-1.3) 11/04/18 15: AST 29 U/L (14-36) 11/04/18 15: ALT 38 U/L (9-52) 11/04/18 15: Alkaline Phosphatase 78 U/L (38-126) 11/04/18 15: Total Protein 6.8 g/dL (6.3-8.3) 11/04/18 15: Albumin 4.2 g/dL (3.5-5.0) 11/04/18 15: Globulin 2.5 gm/dL (2.2-3.9) 11/04/18 15: Albumin/Globulin Ratio 1.7 (1.0-2.1) 11/04/18 15:26 ECG: Interpreted By Me, Viewed By Me (NSR 82 bpm, normal axis, no acute ST/T wave changes) O2 Sat by Pulse Oximetry: 99 (on RA) Pulse Ox Interpretation: Normal - CT Scan/US CT Head Other Rad Studies (CT/US): Read By Radiologist, Radiology Report Reviewed CT/US Interpretation: Date of service: 11/04/2018. PROCEDURE: CT HEAD WITHOUT CONTRAST. HISTORY: DIZZINESS, NEAR SYNCOPE. COMPARISON: None available. TECHNIQUE: Axial computed tomography images were obtained through the head/ brain without intravenous contrast. Radiation dose: Total exam DLP = 875.57 mGy-cm. This CT exam was performed using one or more of the following dose reduction techniques: Automated exposure control, adjustment of the mA and/or kV according to patient size, and/or use of iterative reconstruction technique. FINDINGS: HEMORRHAGE: No intracranial hemorrhage. BRAIN: Choi-white matter differentiation is preserved. There is no mass, mass effect or abnormal extra- axial fluid collection. There is no territorial infarction. The midline sagittal structures are normal. VENTRICLES: The ventricles are normal in size, shape and configuration. CALVARIUM: There is no calvarial fracture or ext racranial soft tissue swelling. PARANASAL SINUSES: Predominantly clear. MASTOID AIR CELLS: Predominantly clear. OTHER FINDINGS: None. IMPRESSION: No acute intracranial abnormality. Progress Note: Blood work, CT head ordered and reviewed. Patient given IV NS bolus. Reevaluation Time: 17:30 Reassessment Condition: Improved (Patient reassessed, is resting comfortably and is currently symptomatic. Blood work and CT head unremarkable. Patient reassurred and instructed to follow up with ENT within 1 week for further evaluation. She understands she should return to ED if symptoms worsen.) Disposition Counseled Patient/Family Regarding: Studies Performed, Diagnosis, Need For Followup, Rx Given - Disposition Referrals: Rah Polanco MD [Staff Provider] - Disposition: HOME/ ROUTINE Disposition Time: 17:30 Condition: STABLE Additional Instructions: FOLLOW UP WITH ENT WITHIN 1 WEEK USE MEDICATION NEEDED FOR DIZZINESS RETURN TO EMERGENCY ROOM IF YOUR SYMPTOMS BECOME WORSE SEGUIR CON ENT EN CHERRIE SEMANA UTILICE MEDICAMENTOS LINDSEY SE NECESITE PARA LA MAREZA VUELVA A LA CHRISTA DE EMERGENCIA SI LUZ SNTOMAS SE HACEN PEOR Prescriptions: Meclizine [Meclizine*] 25 mg PO Q6 #15 tab Instructions: Vertigo (a Type of Dizziness) (DC) Forms: [employer] ([place]ese) Print Language: CENTRAL AFRICAN - Clinical Impression Clinical Impression: Peripheral vertigo - Scribe Statement The provider has reviewed the documentation as recorded by the Rodolfo Delgado All medical record entries made by the Bhavanaibjose r were at my direction and personally dictated by me. I have reviewed the chart and agree that the record accurately reflects my personal performance of the history, physical exam, medical decision making, and the department course for this patient. I have also personally directed, reviewed, and agree with the discharge instructions and disposition.
--- NOTE | 2018-11-04 17:20 | CT ---
Date of service: 11/04/2018 PROCEDURE: CT HEAD WITHOUT CONTRAST. HISTORY: DIZZINESS, NEAR SYNCOPE COMPARISON: None available. TECHNIQUE: Axial computed tomography images were obtained through the head/brain without intravenous contrast. Radiation dose: Total exam DLP = 875.57 mGy-cm. This CT exam was performed using one or more of the following dose reduction techniques: Automated exposure control, adjustment of the mA and/or kV according to patient size, and/or use of iterative reconstruction technique. FINDINGS: HEMORRHAGE: No intracranial hemorrhage. BRAIN: Choi-white matter differentiation is preserved. There is no mass, mass effect or abnormal extra-axial fluid collection. There is no territorial infarction. The midline sagittal structures are normal. VENTRICLES: The ventricles are normal in size, shape and configuration. CALVARIUM: There is no calvarial fracture or extracranial soft tissue swelling. PARANASAL SINUSES: Predominantly clear. MASTOID AIR CELLS: Predominantly clear. OTHER FINDINGS: None. IMPRESSION: No acute intracranial abnormality.
[2018-11-04 17:31] VITALS: BP 136/76; PULSE 88; TEMP 98.2
--- NOTE | 2018-11-08 19:46 | CARD ---
APPROVED REPORT Date of service: 11/04/2018 EKG Measurement Heart [id number] <Conclusion> Normal sinus rhythm Normal ECG
== END 2018-11-04 17:54 | disposition home or self-care (01) ==
LOC: C.ER 15:05
DX: H81.399 Other peripheral vertigo, unspecified ear (principal)
CPT/HCPCS: 70450; 80053; 84484; 85025; 96360; 99285; J7030